=== PATIENT | female | born 1960 | race American Indian/Alaskan Native ===

== ENCOUNTER 2016-05-03 08:54 | Outpatient (CLI) | payer BC ==
--- NOTE | 2016-05-03 10:18 | Mammography Report ---
BILATERAL MAMMOGRAM: Compared to 05/01/15. CAD study utilized. FINDINGS: Scattered glandular parenchyma. No mass or microcalcification. Benign axillary nodes. IMPRESSION: Benign findings. Annual follow-up recommended. BI-RADS CATEGORY: 2 = Benign ACR BI-RADS MAMMOGRAPHIC CODES: 0 = Needs additional imaging evaluation; 1 = Negative; 2 = Benign; 3 = Probably benign; 4 = Suspicious; 5 = Malignant; 6 = Known biopsy-proven malignancy COMMENT: 1. Dense breast tissue, i.e., adenosis, fibrocystic changes, etc., may obscure an underlying neoplasm. 2. Approximately 10% of cancers are not detected with mammography. 3. A negative mammography report should not delay biopsy if a clinically suspicious mass is present. COMMENT: Patient follow-up letters are generated in [employer].
== END 2016-05-03 08:55 | disposition home or self-care (01) ==
LOC: MAMMO 08:54
PROVIDERS: ATTEND Internal Medicine
DX: Z12.31 Encounter for screening mammogram for malignant neoplasm of breast (principal)
CPT/HCPCS: 77067; G0202

== ENCOUNTER 2016-08-28 11:52 | Outpatient (CLI) | payer BC ==
[2016-08-28 12:04] LABS: Hematocrit 39.9 % (30.3-42.9); Mean Corpuscular HGB Conc 33 % (30-34); Mean Corpuscular Hemoglobin 30 pg (28-32); Mean Corpuscular Volume 91 fl (79-97); Platelet Count 195 K/mm3 (140-440); Red Blood Count 4.39 M/mm3 (3.65-5.03); Red Cell Distribution Width 14.1 % (13.2-15.2); White Blood Count 7.5 K/mm3 (4.5-11.0)
[2016-08-28 12:29] LABS: Alanine Aminotransferase 15 units/L (7-56); Albumin 3.9 g/dL (3.9-5); Albumin/Globulin Ratio 1.2 %; Alkaline Phosphatase 77 units/L (35-129); Anion Gap 15 mmol/L; BUN/Creatinine Ratio 23.33; Blood Urea Nitrogen 14 mg/dL (7-17); Calcium 8.9 mg/dL (8.4-10.2); Carbon Dioxide 31 mmol/L (22-30); Chloride 98.5 mmol/L (98-107); Cholesterol 134 mg/dL (50-199); Glucose 112 mg/dL (65-100); HDL Cholesterol 40 mg/dL (40-59); LDL Cholesterol,Direct 76 mg/dL (50-130); Potassium 3.6 mmol/L (3.6-5.0); Sodium 141 mmol/L (137-145); Total Protein 7.1 g/dL (6.3-8.2); Triglycerides 90 mg/dL (2-149)
== END 2016-08-28 11:53 | disposition home or self-care (01) ==
LOC: LAB 11:52
PROVIDERS: ATTEND Internal Medicine
DX: E11.65 Type 2 diabetes mellitus with hyperglycemia (principal); E78.2 Mixed hyperlipidemia; R53.83 Other fatigue
CPT/HCPCS: 36415; 80053; 80061; 83036; 84443; 85027

== ENCOUNTER 2017-01-01 13:43 | Outpatient (CLI) | payer BC ==
--- NOTE | 2017-01-01 16:25 | XRay Report ---
Chest 2 views. History: Cough and bronchitis. Findings: The heart and pulmonary vessels are normal. The lungs are clear. There is no pleural fluid. There is marked deviation of the trachea from left to right with increased soft tissue density in the superior mediastinum. The bony structures are normal. Impression: 1. No acute findings. 2. Increased soft tissue density in the superior mediastinum with deviation of the trachea. This could be do to a goiter, thymoma, lymphoma, or other mediastinal masses. CT of the chest is recommended for further evaluation.
== END 2017-01-01 13:44 | disposition home or self-care (01) ==
LOC: XRAY 13:43
PROVIDERS: ATTEND Internal Medicine
DX: J40 Bronchitis, not specified as acute or chronic (principal); J39.8 Other specified diseases of upper respiratory tract
CPT/HCPCS: 71020

== ENCOUNTER 2017-06-24 10:54 | Outpatient (CLI) | payer BC ==
[2017-06-24 11:36] LABS: Alanine Aminotransferase 16 units/L (7-56); Albumin 3.7 g/dL (3.9-5); BUN/Creatinine Ratio 25; Blood Urea Nitrogen 15 mg/dL (7-17); Calcium 8.7 mg/dL (8.4-10.2); Hemolysis Index 5
== END 2017-06-24 10:55 | disposition home or self-care (01) ==
LOC: LAB 10:54
PROVIDERS: ATTEND Internal Medicine
DX: E11.65 Type 2 diabetes mellitus with hyperglycemia (principal); R53.83 Other fatigue
CPT/HCPCS: 36415; 80053; 83036; 84443

== ENCOUNTER 2017-12-30 04:06 | Inpatient (IN) | payer BC ==
[2017-12-30 05:09] LABS: Bilirubin,Urine NEG (Negative); Blood,Urine NEG (Negative); Color,Urine Straw (Yellow); Protein,Urine <15 mg/dL mg/dL (Negative); Urobilinogen,Urine < 2.0 mg/dL (<2.0)
[2017-12-30 05:16] LABS: Basophils # (Auto) 0.1 K/mm3 (0.0-0.1); Basophils % (Auto) 1.1 % (0.0-1.8); Eosinophils # (Auto) 0.1 K/mm3 (0.0-0.4); Eosinophils % (Auto) 2.1 % (0.0-4.3); Hematocrit 41.6 % (30.3-42.9); Hemoglobin 14.1 gm/dl (10.1-14.3); Lymphocytes # (Auto) 1.8 K/mm3 (1.2-5.4); Lymphocytes % (Auto) 34.6 % (13.4-35.0); Mean Corpuscular HGB Conc 34 % (30-34); Mean Corpuscular Hemoglobin 30 pg (28-32); Mean Corpuscular Volume 90 fl (79-97); Monocytes # (Auto) 0.4 K/mm3 (0.0-0.8); Platelet Count 216 K/mm3 (140-440); Red Blood Count 4.64 M/mm3 (3.65-5.03); Red Cell Distribution Width 13.6 % (13.2-15.2)
[2017-12-30 05:33] LABS: BUN/Creatinine Ratio 24; Blood Urea Nitrogen 17 mg/dL (7-17); Calcium 9.6 mg/dL (8.4-10.2); Hemolysis Index 20
[2017-12-30] MEDS ORDERED: HumuLIN R IV ONE ×2 (07:51→08:37)
[2017-12-30] MEDS ORDERED: NACL 0.9% 1000 ML 1,000 ML IV ONE ×2 (07:51→09:33)
--- NOTE | 2017-12-30 07:56 | Emergency Department Report ---
ED General Adult HPI - General Chief complaint: Hyperglycemia Stated complaint: WEAKNESS Time Seen by Provider: 12/30/17 07:46 Source: patient Mode of arrival: Ambulatory Limitations: No Limitations - History of Present Illness Initial comments: Patient is 57-year-old female with history of hypertension and diabetes. Patient is taking metformin. Patient is followed with Dr. Vieira. Patient stated that she's been having frequency of urination and feeling thirsty all the time. Patient denied any chest pain, shortness of breath, nausea, vomiting or abdominal pain. Patient also denied any fever or cough. - Related Data Allergies Allergy/AdvReac Type Severity Reaction Status Date / Time No Known Allergies Allergy Unverified 04/29/14 07:46 ED Review of Systems ROS: Stated complaint: WEAKNESS Other details as noted in HPI Comment: All other systems reviewed and negative Constitutional: denies: chills, fever Respiratory: denies: cough, orthopnea, shortness of breath, SOB with exertion, SOB at rest, wheezing Cardiovascular: denies: chest pain, palpitations, dyspnea on exertion Gastrointestinal: denies: abdominal pain, nausea, vomiting, diarrhea, constipation, hematemesis, melena, hematochezia Genitourinary: frequency. denies: urgency, dysuria, hematuria, discharge, abnormal menses, dyspareunia Musculoskeletal: denies: back pain Neurological: denies: headache, weakness, numbness, paresthesias, confusion, abnormal gait, vertigo ED Past Medical Hx - Past Medical History Previous Medical History?: No - Surgical History Additional Surgical History: Thyroidectomy, - Social History Smoking Status: Never Smoker Substance Use Type: None ED Physical Exam - General Limitations: No Limitations General appearance: alert, in no apparent distress - Head Head exam: Present: atraumatic, normocephalic, normal inspection - Eye Eye exam: Present: normal appearance, PERRL - ENT ENT exam: Present: normal exam, normal orophraynx, mucous membranes moist - Neck Neck exam: Present: normal inspection, full ROM. Absent: tenderness, meningismus, lymphadenopathy, thyromegaly - Respiratory Respiratory exam: Present: normal lung sounds bilaterally. Absent: respiratory distress, wheezes, rales, rhonchi, stridor, chest wall tenderness, accessory muscle use, decreased breath sounds, prolonged expiratory - Cardiovascular Cardiovascular Exam: Present: regular rate, normal rhythm, normal heart sounds - GI/Abdominal GI/Abdominal exam: Present: soft, normal bowel sounds. Absent: distended, tenderness, guarding, rebound, rigid, organomegaly, mass, bruit, pulsatile mass , hernia - Extremities Exam Extremities exam: Present: normal inspection, full ROM, normal capillary refill - Back Exam Back exam: Present: normal inspection, full ROM. Absent: tenderness, CVA tenderness (R), CVA tenderness (L), muscle spasm, paraspinal tenderness, vertebral tenderness, rash noted - Neurological Exam Neurological exam: Present: alert, oriented X3, CN II-XII intact, normal gait, reflexes normal - Skin Skin exam: Present: warm, intact, normal color ED Course Vital Signs 12/30/17 12/30/17 12/30/17 04:12 04:35 04:52 Temperature 98.6 F 98.6 F Pulse Rate 90 90 Respiratory 18 16 16 Rate Blood Pressure 135/89 135/89 O2 Sat by Pulse 97 96 Oximetry 12/30/17 12/30/17 12/30/17 05:10 05:15 05:18 Temperature Pulse Rate 89 89 87 Respiratory 12 16 Rate Blood Pressure O2 Sat by Pulse 97 96 Oximetry 12/30/17 12/30/17 12/30/17 05:30 05:46 06:00 Temperature Pulse Rate 83 85 81 Respiratory 17 13 14 Rate Blood Pressure 136/85 136/85 142/86 O2 Sat by Pulse 97 95 98 Oximetry 12/30/17 12/30/17 12/30/17 06:22 06:30 06:46 Temperature Pulse Rate 88 85 83 Respiratory 20 16 20 Rate Blood Pressure 142/86 126/85 130/86 O2 Sat by Pulse 98 97 98 Oximetry 12/30/17 12/30/17 12/30/17 07:00 07:16 07:30 Temperature Pulse Rate 88 83 80 Respiratory 20 15 16 Rate Blood Pressure 126/85 121/83 142/89 O2 Sat by Pulse 99 96 95 Oximetry 12/30/17 12/30/17 12/30/17 08:00 08:33 09:00 Temperature Pulse Rate 85 85 82 Respiratory 15 28 H Rate Blood Pressure 135/87 142/89 126/84 O2 Sat by Pulse 97 96 Oximetry 12/30/17 10:00 Temperature Pulse Rate 81 Respiratory 16 Rate Blood Pressure 140/80 O2 Sat by Pulse 96 Oximetry ED Medical Decision Making - Lab Data Result diagrams: 12/30/17 04:55 12/30/17 04:55 - Medical Decision Making Patient is 57-year-old female with history of hypertension and diabetes. Patient is taking metformin. Patient is followed with Dr. Vieira. Patient stated that she's been having frequency of urination and feeling thirsty all the time. Patient denied any chest pain, shortness of breath, nausea, vomiting or abdominal pain. Patient also denied any fever or cough. I discussed the patient is Dr. Vieira, he agreed to admit the patient to his service. Critical Care Time: Yes Critical care time in (mins) excluding proc time.: 30 Critical care attestation.: If time is entered above; I have spent that time in minutes in the direct care of this critically ill patient, excluding procedure time. ED Disposition Clinical Impression: Hyperglycemia due to type 2 diabetes mellitus Disposition: OP ADMIT IP TO THIS HOSP Is pt being admited?: Yes Condition: Stable
--- NOTE | 2017-12-30 10:16 | History and Physical Report ---
History of Present Illness Date of examination: 12/30/17 Date of admission: 12/30/17 Chief complaint: CC Feeling weak High BG levels History of present illness: History of Present Illness: 57-year-old female with history of hypertension and diabetes on Metformin and Glimepride 1 mg po qd comes in for High BG levels Frequent urination and feeling excessively thirsty .Patient is [employer] employee and comes to my clinic for management of her diabetes.Last A1C was 8 in September 2017. Patient denied any chest pain, shortness of breath, nausea, vomiting or abdominal pain. Patient also denied any fever or cough.In ED her Glucose levels were above 600 and A1c was 17 --Hence the admission. No altered sensorium.No fever or chills.No dysuria. Past Medical History Previous Medical History?: No Surgical History Additional Surgical History: Thyroidectomy, Social History Smoking Status: Never Smoker Substance Use Type: None Family History htn Review of Systems Stated complaint: WEAKNESS Other details as noted in HPI Comment: All other systems reviewed and negative Constitutional: denies: chills, fever Respiratory: denies: cough, orthopnea, shortness of breath, SOB with exertion, SOB at rest, wheezing Cardiovascular: denies: chest pain, palpitations, dyspnea on exertion Gastrointestinal: denies: abdominal pain, nausea, vomiting, diarrhea, constipation, hematemesis, melena, hematochezia Genitourinary: frequency. denies: urgency, dysuria, hematuria, discharge, abnormal menses, dyspareunia Musculoskeletal: denies: back pain Neurological: denies: headache, weakness, numbness, paresthesias, confusion, abnormal gait, vertigo Medications and Allergies Allergies Allergy/AdvReac Type Severity Reaction Status Date / Time No Known Allergies Allergy Verified 12/30/17 12:39 Home Medications Medication Instructions Recorded Confirmed Last Taken Type Carvedilol [Coreg] 6.25 mg PO BID MDD 6.25 mg 12/30/17 12/30/17 12/28/17 History 6.25 mg Simvastatin 40 mg PO DAILY MDD 40 mg 12/30/17 12/30/17 12/28/17 History 40 mg metFORMIN [Glucophage] 500 mg PO BID MDD 500 mg 12/30/17 12/30/17 12/28/17 History 500mg Active Meds: Active Medications Sodium Chloride (Nacl 0.9% 1000 Ml) 1,000 mls @ 999 mls/hr IV BOLUS ONE Stop: 12/30/17 10:33 Last Admin: 12/30/17 09:33 Dose: 999 mls/hr Exam - Constitutional Vitals: Temp Pulse Resp BP Pulse Ox 98.6 F 85 15 142/89 97 12/30/17 04:35 12/30/17 08:33 12/30/17 08:00 12/30/17 08:33 12/30/17 08:00 General appearance: Present: no acute distress, well-nourished - EENT Eyes: Present: PERRL ENT: hearing intact, clear oral mucosa - Neck Neck: Present: supple, normal ROM - Respiratory Respiratory effort: normal Respiratory: bilateral: CTA - Cardiovascular Heart rate: 78 Heart Sounds: Present: S1 & S2. Absent: rub, click - Extremities Extremities: no ischemia, pulses intact, pulses symmetrical, No edema Peripheral Pulses: within normal limits - Abdominal General gastrointestinal: Present: soft, non-tender, non-distended, normal bowel sounds Female genitourinary: Present: normal - Rectal Rectal Exam: deferred - Integumentary Integumentary: Present: clear, warm, dry - Musculoskeletal Musculoskeletal: gait normal, strength equal bilaterally - Psychiatric Psychiatric: appropriate mood/affect, intact judgment & insight - Neurologic Neurologic: CNII-XII intact, moves all extremities - Allied Health Allied health notes reviewed: nursing, case management Results - Labs CBC & Chem 7: 12/31/17 04:46 12/31/17 04:46 Labs: Laboratory Last Values WBC 5.1 K/mm3 (4.5-11.0) 12/30/17 04:55 RBC 4.64 M/mm3 (3.65-5.03) 12/30/17 04:55 Hgb 14.1 gm/dl (10.1-14.3) 12/30/17 04:55 Hct 41.6 % (30.3-42.9) 12/30/17 04:55 MCV 90 fl (79-97) 12/30/17 04:55 MCH 30 pg (28-32) 12/30/17 04:55 MCHC 34 % (30-34) 12/30/17 04:55 RDW 13.6 % (13.2-15.2) 12/30/17 04:55 Plt Count 216 K/mm3 (140-440) 12/30/17 04:55 Lymph % (Auto) 34.6 % (13.4-35.0) 12/30/17 04:55 [place] % (Auto) 8.0 % (0.0-7.3) H 12/30/17 04:55 Eos % (Auto) 2.1 % (0.0-4.3) 12/30/17 04:55 Baso % (Auto) 1.1 % (0.0-1.8) 12/30/17 04:55 Lymph # 1.8 K/mm3 (1.2-5.4) 12/30/17 04:55 [place] # 0.4 K/mm3 (0.0-0.8) 12/30/17 04:55 Eos # 0.1 K/mm3 (0.0-0.4) 12/30/17 04:55 Baso # 0.1 K/mm3 (0.0-0.1) 12/30/17 04:55 Seg Neutrophils % 54.2 % (40.0-70.0) 12/30/17 04:55 Seg Neutrophils # 2.8 K/mm3 (1.8-7.7) 12/30/17 04:55 VBG pH 7.377 (7.320-7.420) 12/30/17 04:55 Sodium 127 mmol/L (137-145) L 12/30/17 04:55 Potassium 4.3 mmol/L (3.6-5.0) 12/30/17 04:55 Chloride 87.2 mmol/L (98-107) L 12/30/17 04:55 Carbon Dioxide 27 mmol/L (22-30) 12/30/17 04:55 Anion Gap 17 mmol/L 12/30/17 04:55 BUN 17 mg/dL (7-17) 12/30/17 04:55 Creatinine 0.7 mg/dL (0.7-1.2) 12/30/17 04:55 Estimated GFR > 60 ml/min 12/30/17 04:55 BUN/Creatinine Ratio 24 % 12/30/17 04:55 Glucose 647 mg/dL (65-100) H* 12/30/17 04:55 POC Glucose 313 (70-105) H 12/30/17 09:25 Hemoglobin A1c 17.1 % (4-6) H 12/30/17 08:01 Calcium 9.6 mg/dL (8.4-10.2) 12/30/17 04:55 Urine Color Straw (Yellow) 12/30/17 04:50 Urine Turbidity Clear (Clear) 12/30/17 04:50 Urine pH 5.0 (5.0-7.0) 12/30/17 04:50 Ur Specific [place] 1.029 (1.003-1.030) 12/30/17 04:50 Urine Protein <15 mg/dl mg/dL (Negative) 12/30/17 04:50 Urine Glucose (UA) >=500 mg/dL (Negative) 12/30/17 04:50 Urine Ketones Neg mg/dL (Negative) 12/30/17 04:50 Urine Blood Neg (Negative) 12/30/17 04:50 Urine Nitrite Neg (Negative) 12/30/17 04:50 Urine Bilirubin Neg (Negative) 12/30/17 04:50 Urine Urobilinogen < 2.0 mg/dL (<2.0) 12/30/17 04:50 Ur Leukocyte Esterase Sm (Negative) 12/30/17 04:50 Urine WBC (Auto) 4.0 /HPF (0.0-6.0) 12/30/17 04:50 Urine RBC (Auto) 2.0 /HPF (0.0-6.0) 12/30/17 04:50 U Epithel Cells (Auto) 1.0 /HPF (0-13.0) 12/30/17 04:50 Short CBC 12/31/17 Range/Units 04:46 WBC 4.7 (4.5-11.0) K/mm3 Hgb 12.5 (10.1-14.3) gm/dl Hct 37.4 (30.3-42.9) % Plt Count 169 (140-440) K/mm3 BMP 12/31/17 04:46 Sodium 136 L D Potassium 3.5 L Chloride 99.5 Carbon Dioxide 25 BUN 12 Creatinine 0.5 L Glucose 198 H Calcium 8.2 L Liver Function 12/31/17 Range/Units 04:46 Total Bilirubin 0.70 (0.1-1.2) mg/dL AST 22 (5-40) units/L ALT 23 (7-56) units/L Alkaline Phosphatase 79 (35-129) units/L Albumin 3.2 L (3.9-5) g/dL - Imaging and Cardiology EKG: report reviewed Assessment and Plan Advance Directives: Yes (FC) VTE prophylaxis?: Chemical Plan of care discussed with patient/family: Yes - Patient Problems (1) Hyperosmolar non-ketotic state in patient with type 2 diabetes mellitus Current Visit: Yes Status: Acute Plan to address problem: Initial BG is 630 No Ketones Clinical picture in favor of Hyuperosmolar Non ketotic state Will initiate on Accucheks q4 and moderate dose protocol IV Fluids Humalog 70/30 15 units BID Patient reluctant for admission (2) HTN (hypertension) Current Visit: Yes Status: Chronic Qualifiers: Hypertension type: essential hypertension Qualified Code(s): I10 - Essential (primary) hypertension Plan to address problem: COnt Antihypertensives (3) Morbid obesity due to excess calories Current Visit: Yes Status: Chronic Plan to address problem: Counselled (4) Hyponatremia Current Visit: Yes Status: Acute Plan to address problem: Should correct with Correction of BG (5) DVT prophylaxis Current Visit: Yes Status: Acute Plan to address problem: On Lovenox GI prophylaxis initiated
[2017-12-30] MEDS ORDERED: ZOFRAN IV PRN (10:19)
[2017-12-30] MEDS ORDERED: MORPHINE IV PRN (10:19)
[2017-12-30] MEDS ORDERED: TYLENOL PO PRN (10:19)
[2017-12-30] MEDS ORDERED: SODIUM CHLORIDE FLUSH SYRINGE 10 ML IV PRN (10:19)
[2017-12-30] MEDS ORDERED: HumaLOG SUB-Q ONE (10:22)
[2017-12-30] MEDS: LOVENOX SUB-Q SCH (10:38)
[2017-12-30] MEDS: NACL 0.9% 1000 ML 1,000 ML IV SCH (12:55)
[2017-12-30] MEDS ORDERED: HumaLOG SUB-Q PRN (17:01)
[2017-12-30] MEDS: PERCOCET 5/325 PO PRN (20:53)
[2017-12-30] MEDS: SODIUM CHLORIDE FLUSH SYRINGE 10 ML IV SCH (22:12)
[2017-12-30] MEDS: HumaLOG SUB-Q SCH (22:13)
[2017-12-31] MEDS: NACL 0.9% 1000 ML 1,000 ML IV SCH ×2 (00:12→18:35)
[2017-12-31] MEDS: HumaLOG SUB-Q SCH ×6 (02:30→21:53)
[2017-12-31] MEDS: PERCOCET 5/325 PO PRN (02:34)
[2017-12-31 05:26] LABS: Basophils % (Auto) 0.6 % (0.0-1.8); Eosinophils # (Auto) 0.1 K/mm3 (0.0-0.4); Eosinophils % (Auto) 2.1 % (0.0-4.3); Hematocrit 37.4 % (30.3-42.9); Hemoglobin 12.5 gm/dl (10.1-14.3); Lymphocytes # (Auto) 1.7 K/mm3 (1.2-5.4); Lymphocytes % (Auto) 36.4 % (13.4-35.0); Mean Corpuscular HGB Conc 34 % (30-34); Mean Corpuscular Hemoglobin 30 pg (28-32); Mean Corpuscular Volume 90 fl (79-97); Monocytes # (Auto) 0.4 K/mm3 (0.0-0.8); Monocytes % (Auto) 9.2 % (0.0-7.3); Platelet Count 169 K/mm3 (140-440); Red Blood Count 4.15 M/mm3 (3.65-5.03); Red Cell Distribution Width 13.7 % (13.2-15.2)
[2017-12-31 05:42] LABS: Alanine Aminotransferase 23 units/L (7-56); Albumin 3.2 g/dL (3.9-5); BUN/Creatinine Ratio 24; Blood Urea Nitrogen 12 mg/dL (7-17); Calcium 8.2 mg/dL (8.4-10.2); Hemolysis Index 4
[2017-12-31] MEDS ORDERED: K-DUR PO ONE (09:00)
[2017-12-31] MEDS: LOVENOX SUB-Q SCH (09:19)
[2017-12-31] MEDS: SODIUM CHLORIDE FLUSH SYRINGE 10 ML IV SCH ×2 (09:20→21:57)
[2017-12-31] MEDS ORDERED: NON-FORMULARY (Simvastatin 40 MG) PO SCH (10:00)
[2017-12-31] MEDS: COREG PO SCH ×2 (10:48→21:54)
[2017-12-31] MEDS ORDERED: HumaLOG SUB-Q ONE (12:10)
--- NOTE | 2017-12-31 13:13 | Discharge Summary ---
Providers - Providers Date of Admission: 12/30/17 10:20 Attending physician: HECTOR FELIX 12/30/17 10:23 Consult to Dietitian/Nutrition [CONS] Routine Physician Instructions: uncontrolled diabetes Reason For Exam: uncontrolled diabetes Reason for Consult: Diet education Primary care physician: MIGUEL FARRELL MD Hospitalization Condition: Stable Exam - Constitutional Vitals: Temp Pulse Resp BP Pulse Ox 97.7 F 88 18 104/51 96 12/31/17 06:21 12/31/17 10:48 12/31/17 06:21 12/31/17 10:48 12/31/17 06:21 Plan Follow up with: PRIMARY MD BUD [Primary Care Provider] - 3-5 Days
--- NOTE | 2017-12-31 14:11 | Progress Note ---
Assessment and Plan Assessment and plan: Hyperosmolar hyperglycemic syndrome. Blood glucose still high. Will cancel intended discharge. Increase Novolin 70/30 to 26 units bid. Hypertension. Monitor BP Hyponatremia. Hypokalemia. Potassium orally, and recheck in am Morbid obesity Full code status History Interval history: Elevated blood glucose Hospitalist Physical - Physical exam Narrative exam: GEN:Not in acute distress, lying in bed, morbidly obese HEENT: Normocephalic, atraumatic, Neck: supple, No JVD Lungs: Clear to auscultation bilaterally, no crackles Heart:S1 and S2 reg, no murmurs, rubs or gallop Abd:soft, non tender, non distended, Normal bowel sounds Ext: No edema, clubbing or cyanosis Neuro: Awake, alert, oriented x 3, no focal signs - Constitutional Vitals: Temp Pulse Resp BP Pulse Ox 98.4 F 77 16 125/76 97 12/31/17 12:07 12/31/17 12:07 12/31/17 12:07 12/31/17 12:07 12/31/17 12:07 General appearance: Present: no acute distress, obese Results - Labs CBC & Chem 7: 12/31/17 04:46 12/31/17 04:46 Labs: Laboratory Last Values WBC 4.7 K/mm3 (4.5-11.0) 12/31/17 04:46 RBC 4.15 M/mm3 (3.65-5.03) 12/31/17 04:46 Hgb 12.5 gm/dl (10.1-14.3) 12/31/17 04:46 Hct 37.4 % (30.3-42.9) 12/31/17 04:46 MCV 90 fl (79-97) 12/31/17 04:46 MCH 30 pg (28-32) 12/31/17 04:46 MCHC 34 % (30-34) 12/31/17 04:46 RDW 13.7 % (13.2-15.2) 12/31/17 04:46 Plt Count 169 K/mm3 (140-440) 12/31/17 04:46 Lymph % (Auto) 36.4 % (13.4-35.0) H 12/31/17 04:46 [place] % (Auto) 9.2 % (0.0-7.3) H 12/31/17 04:46 Eos % (Auto) 2.1 % (0.0-4.3) 12/31/17 04:46 Baso % (Auto) 0.6 % (0.0-1.8) 12/31/17 04:46 Lymph # 1.7 K/mm3 (1.2-5.4) 12/31/17 04:46 [place] # 0.4 K/mm3 (0.0-0.8) 12/31/17 04:46 Eos # 0.1 K/mm3 (0.0-0.4) 12/31/17 04:46 Baso # 0.0 K/mm3 (0.0-0.1) 12/31/17 04:46 Seg Neutrophils % 51.7 % (40.0-70.0) 12/31/17 04:46 Seg Neutrophils # 2.4 K/mm3 (1.8-7.7) 12/31/17 04:46 VBG pH 7.377 (7.320-7.420) 12/30/17 04:55 Sodium 136 mmol/L (137-145) L D 12/31/17 04:46 Potassium 3.5 mmol/L (3.6-5.0) L 12/31/17 04:46 Chloride 99.5 mmol/L (98-107) 12/31/17 04:46 Carbon Dioxide 25 mmol/L (22-30) 12/31/17 04:46 Anion Gap 15 mmol/L 12/31/17 04:46 BUN 12 mg/dL (7-17) 12/31/17 04:46 Creatinine 0.5 mg/dL (0.7-1.2) L 12/31/17 04:46 Estimated GFR > 60 ml/min 12/31/17 04:46 BUN/Creatinine Ratio 24 % 12/31/17 04:46 Glucose 198 mg/dL (65-100) H 12/31/17 04:46 POC Glucose 429 (70-105) H 12/31/17 14:07 Hemoglobin A1c 17.1 % (4-6) H 12/30/17 08:01 Calcium 8.2 mg/dL (8.4-10.2) L 12/31/17 04:46 Total Bilirubin 0.70 mg/dL (0.1-1.2) 12/31/17 04:46 AST 22 units/L (5-40) 12/31/17 04:46 ALT 23 units/L (7-56) 12/31/17 04:46 Alkaline Phosphatase 79 units/L (35-129) 12/31/17 04:46 Total Protein 5.6 g/dL (6.3-8.2) L 12/31/17 04:46 Albumin 3.2 g/dL (3.9-5) L 12/31/17 04:46 Albumin/Globulin Ratio 1.3 % 12/31/17 04:46 Urine Color Straw (Yellow) 12/30/17 04:50 Urine Turbidity Clear (Clear) 12/30/17 04:50 Urine pH 5.0 (5.0-7.0) 12/30/17 04:50 Ur Specific [place] 1.029 (1.003-1.030) 12/30/17 04:50 Urine Protein <15 mg/dl mg/dL (Negative) 12/30/17 04:50 Urine Glucose (UA) >=500 mg/dL (Negative) 12/30/17 04:50 Urine Ketones Neg mg/dL (Negative) 12/30/17 04:50 Urine Blood Neg (Negative) 12/30/17 04:50 Urine Nitrite Neg (Negative) 12/30/17 04:50 Urine Bilirubin Neg (Negative) 12/30/17 04:50 Urine Urobilinogen < 2.0 mg/dL (<2.0) 12/30/17 04:50 Ur Leukocyte Esterase Sm (Negative) 12/30/17 04:50 Urine WBC (Auto) 4.0 /HPF (0.0-6.0) 12/30/17 04:50 Urine RBC (Auto) 2.0 /HPF (0.0-6.0) 12/30/17 04:50 U Epithel Cells (Auto) 1.0 /HPF (0-13.0) 12/30/17 04:50
[2017-12-31] MEDS ORDERED: PRAVACHOL PO SCH (22:00)
[2018-01-01] MEDS: NACL 0.9% 1000 ML 1,000 ML IV SCH (05:27)
[2018-01-01] MEDS: HumaLOG SUB-Q SCH (08:50)
--- NOTE | 2018-01-01 09:10 | Discharge Summary ---
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 Vieira, PCP in 1 week Follow up with: PRIMARY CARE, [Primary Care Provider] - 3-5 Days Prescriptions: Insulin NPH/Regular [NovoLIN 70/30] 26 unit SUB-Q BIDDIAB #1 vial
[2018-01-01] MEDS: COREG PO SCH (09:47)
[2018-01-01] MEDS: LOVENOX SUB-Q SCH (09:48)
[2018-01-01] MEDS: SODIUM CHLORIDE FLUSH SYRINGE 10 ML IV SCH (09:53)
[2018-01-01 11:44] VITALS: BP 121/73
[2018-01-01] MEDS ORDERED: DIFLUCAN PO ONE (12:00)
== END 2018-01-01 12:30 | disposition home or self-care (01) | DRG 638 ==
LOC: ED 04:06 → 3A 10:20
PROVIDERS: ADMIT Internal Medicine; ATTEND Internal Medicine
DX: E11.00 Type 2 diabetes mellitus with hyperosmolarity without nonketotic hyperglycemic-hyperosmolar coma (NKHHC) (principal); E87.1 Hypo-osmolality and hyponatremia; Z68.41 Body mass index [BMI] 40.0-44.9, adult; I10 Essential (primary) hypertension; E87.6 Hypokalemia; E66.01 Morbid (severe) obesity due to excess calories; E89.0 Postprocedural hypothyroidism; Z79.899 Other long term (current) drug therapy; Z71.3 Dietary counseling and surveillance
CPT/HCPCS: 36415; 80048; 80053; 81001; 82805; 82962; 83036; 85025; 87116; 96361; 96372; 96374; A9270-GY; J1650; J1815; J7030

== ENCOUNTER 2018-08-03 05:37 | Outpatient (CLI) | payer BC | END 2018-08-03 05:38 | disposition home or self-care (01) | LOC: LAB 05:37 | PROVIDERS: ATTEND Internal Medicine | DX: E11.65 Type 2 diabetes mellitus with hyperglycemia (principal); I10 Essential (primary) hypertension; E66.01 Morbid (severe) obesity due to excess calories | CPT/HCPCS: 36415; 83036 ==

== ENCOUNTER 2019-02-02 05:41 | Outpatient (CLI) | payer BC | END 2019-02-02 05:42 | disposition home or self-care (01) | LOC: LAB 05:41 | PROVIDERS: ATTEND Internal Medicine | DX: E11.65 Type 2 diabetes mellitus with hyperglycemia (principal); I10 Essential (primary) hypertension | CPT/HCPCS: 36415; 83036 ==

== ENCOUNTER 2019-06-28 13:05 | Outpatient (CLI) | payer BC ==
[2019-06-28 13:58] LABS: Alanine Aminotransferase 14 units/L (7-56); Albumin 3.9 g/dL (3.9-5); BUN/Creatinine Ratio 23; Blood Urea Nitrogen 14 mg/dL (7-17); Calcium 9.3 mg/dL (8.4-10.2); Hemolysis Index 4
== END 2019-06-28 13:06 | disposition home or self-care (01) ==
LOC: LAB 13:05
PROVIDERS: ATTEND Internal Medicine
DX: R53.83 Other fatigue (principal); E11.65 Type 2 diabetes mellitus with hyperglycemia
CPT/HCPCS: 36415; 80053; 83036

== ENCOUNTER 2019-09-11 18:43 | Emergency (ER) | payer BC ==
[2019-09-11 18:53] VITALS: BP 145/104
--- NOTE | 2019-09-11 19:59 | Emergency Department Report ---
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 Patient states that the pain is minimum she reports that she is able to do everything. Patient thinks she has been moving and working too much. - Exam Vital Signs: Vital Signs 09/11/19 18:50 Temperature 98 F Pulse Rate 90 Respiratory 20 Rate Blood Pressure 145/104 O2 Sat by Pulse 96 Oximetry Physical Exam: Patient is alert and oriented no acute distress nontoxic in appearance Neck full range of motion no tenderness Left arm full range of motion no tenderness to the shoulder no tenderness to the elbow or wrist or hand there is no swelling appreciated. Left knee full range of motion minimal tenderness no swelling no erythematous. Patient is ambulatory without difficulties. MSE screening note: Focused history and physical exam performed. 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 Patient states that the pain is minimum she reports that she is able to do everything. Patient thinks she has been moving and working too much. Recommend patient to take [id number] Tylenol or ibuprofen for pain management. I recommend patient to rest today increase her fluid intake. Patient verbalized understanding ED Disposition for MSE Disposition: Z-07 MED SCREENING EXAM-LEFT Is pt being admited?: No Does the pt Need Aspirin: No Condition: Stable Additional Instructions: Recommend taking Tylenol or ibuprofen for pain management increase your fluid intake. Rest. Referrals: PRIMARY CARE, [Primary Care Provider] - 3-5 Days Forms: Work/School Release Form(ED)
== END 2019-09-11 20:00 | disposition left against medical advice (07) ==
LOC: ED 18:43
DX: M25.561 Pain in right knee (principal)
CPT/HCPCS: 99282

== ENCOUNTER 2020-08-02 11:49 | Outpatient (CLI) | payer BC ==
[2020-08-02 12:38] LABS: Alanine Aminotransferase 12 units/L (7-56); Albumin 3.7 g/dL (3.9-5); Blood Urea Nitrogen 12 mg/dL (7-17); Calcium 8.6 mg/dL (8.4-10.2); Hemolysis Index 5
[2020-08-02 12:55] LABS: BUN/Creatinine Ratio 24
== END 2020-08-02 11:50 | disposition home or self-care (01) ==
LOC: LAB 11:49
PROVIDERS: ATTEND Internal Medicine
DX: E11.65 Type 2 diabetes mellitus with hyperglycemia (principal); R53.83 Other fatigue; R73.09 Other abnormal glucose
CPT/HCPCS: 36415; 80053; 83036

== ENCOUNTER 2020-11-08 10:12 | Outpatient (CLI) | payer BC ==
[2020-11-08 11:38] LABS: Alanine Aminotransferase 12 units/L (7-56); Albumin 3.9 g/dL (3.9-5); Blood Urea Nitrogen 12 mg/dL (7-17); Calcium 9.3 mg/dL (8.4-10.2); Hemolysis Index 3
[2020-11-08 11:39] LABS: BUN/Creatinine Ratio 24
== END 2020-11-08 10:13 | disposition home or self-care (01) ==
LOC: LAB 10:12
PROVIDERS: ATTEND Internal Medicine
DX: E11.65 Type 2 diabetes mellitus with hyperglycemia (principal); R73.09 Other abnormal glucose; R53.83 Other fatigue
CPT/HCPCS: 36415; 80053; 83036

== ENCOUNTER 2021-02-01 07:25 | Outpatient (CLI) | payer BC ==
[2021-02-01 08:30] LABS: Hematocrit 43.1 % (30.3-42.9); Hemoglobin 14.2 gm/dl (10.1-14.3); Mean Corpuscular HGB Conc 33 % (30-34); Mean Corpuscular Volume 89 fl (79-97); Platelet Count 242 K/mm3 (140-440); Red Blood Count 4.85 M/mm3 (3.65-5.03); Red Cell Distribution Width 13.3 % (13.2-15.2)
[2021-02-01 08:53] LABS: Alanine Aminotransferase 17 units/L (7-56); Albumin 3.9 g/dL (3.9-5); Blood Urea Nitrogen 11 mg/dL (7-17); Calcium 9.3 mg/dL (8.4-10.2); Chol/HDL Ratio 3.69 %; HDL Cholesterol 42 mg/dL (40-59); Hemolysis Index 8; LDL Cholesterol,Direct 103 mg/dL (50-130)
[2021-02-01 08:56] LABS: BUN/Creatinine Ratio 22
--- NOTE | 2021-02-01 18:00 | Mammography Report ---
DIGITAL SCREENING MAMMOGRAM WITH CAD, 02/01/2021 CLINICAL INFORMATION / INDICATION: Routine screening TECHNIQUE: Digital bilateral 2D mammography was obtained in the craniocaudal and mediolateral obliqu e projections. This examination was interpreted with the benefit of Computer-Aided Detection analysis . COMPARISON: 08/18/2019 FINDINGS: Breast Density: The breasts are heterogeneously dense, which may obscure small masses. No dominant mass, suspicious calcifications, or architectural distortion in either breast. IMPRESSION: No mammographic evidence of malignancy. Follow up recommendation: Routine yearly BI-RADS Category 1: Negative. A "normal" or negative report should not discourage follow up or biopsy of a clinically significant f inding. A written summary of these findings will be mailed to the patient. The patient will be entered into a mammography reporting system which will generate a reminder letter for the patient's next appointmen t at the appropriate interval. The [employer] recommends yearly mammograms starting at age 40 and continuing as l yumiko as a woman is in good health. Breast MRI is recommended for women with an approximate 20-25% or greater lifetime risk of breast cancer, including women with a strong family history of breast or ova kyle cancer or who have been treated for Hodgkin's disease. Signer Name: Jun Holden MD Signed: 02/01/2021 5:55 PM Workstation Name: [email or web address]
== END 2021-02-01 07:26 | disposition home or self-care (01) ==
LOC: LAB 07:25
PROVIDERS: ATTEND Internal Medicine
DX: Z12.31 Encounter for screening mammogram for malignant neoplasm of breast (principal)
CPT/HCPCS: 36415; 77067; 80053; 80061; 82306; 83036; 84443; 85027

== ENCOUNTER 2021-03-16 09:29 | Day surgery (SDC) | payer BC ==
[~2021-03-16 09:29] MED LIST: SODIUM CHLORIDE 0.9% 1000 ML 1,000 ML IV SCH
--- NOTE | 2021-03-16 11:09 | Anesthesia Day of Surgery ---
Anesthesia Day of Surgery - Day of Surgery Patient Examined: Yes Patient H&P Reviewed: Yes Patient is NPO: Yes
--- NOTE | 2021-03-16 11:09 | Anesthesia Consultation ---
Anesthesia Consult and Med Hx Date of service: 03/16/21 - Airway Anesthetic Teeth Evaluation: Good ROM Head & Neck: Adequate Mental/Hyoid Distance: Adequate Mallampati Class: Class III Intubation Access Assessment: Possibly Difficult - Pre-Operative Health Status ASA Pre-Surgery Classification: ASA2 Proposed Anesthetic Plan: MAC - Pulmonary Hx Smoking: No Hx Respiratory Symptoms: No - Cardiovascular System Hx Hypertension: Yes Hx Heart Attack/AMI: No - Central Nervous System CVA: No - Endocrine Hx Renal Disease: No Hx Liver Disease: No Hx Insulin Dependent Diabetes: No Hx Non-Insulin Dependent Diabetes: No Hx Thyroid Disease: No - Additional Comments Anesthesia Medical History Comments: No hx anesthetic complications.
[2021-03-16 12:04] VITALS: BP 115/72
[2021-03-16] MEDS ORDERED: propofoL 200 MG/20 ML VIAL IV ONE ×2 (13:35→13:49)
--- NOTE | 2021-03-16 14:04 | Procedure Note ---
Date of procedure: 03/16/21 Pre-op diagnosis: Colon Polyp Screening/ F/H/o Cancer ([place] Cancer-aunt) Post-op diagnosis: other (No Colon Polyps noted/ Few,Left Colon Diverticuli/ Minor,Internal and External Hemorrhoids) Procedure: Colonoscopy Anesthesia: MAC Surgeon: SAMUEL LE Estimated blood loss: none Pathology: none Condition: stable Disposition: same day (Encourage fiber intake; resume home medication and follow p in 1 o 2 weeks ([phone]).)
--- NOTE | 2021-03-16 14:39 | Post Anesthesia Evaluation ---
- Post Anesthesia Evaluation Patient Participated: Yes Airway Patent: Yes Stable Respiratory Function: Yes Nausea/Vomiting: No Temp > 96.8F: Yes Pain Manageable: Yes Adequeate Hydration: Yes Anesthesia Complications: No
--- NOTE | 2021-03-16 15:12 | Operative Report ---
DATE OF SURGERY: 03/16/2021 INDICATIONS: This is a 60-year-old obese -[place] female with a family history of cancer. The patient's aunt has had breast cancer. Colonoscopy was done as part of colon polyp screening. She has never had a colonoscopy done before. DESCRIPTION OF PROCEDURE: Procedure was done after getting informed consent with MAC anesthesia. Initial rectal examination showed presence of some minor external hemorrhoids. The instrument was passed through the rectum onto the cecum, which was identified with ileocecal valve and the appendiceal orifice. Visualization was fair to good. Cecum, ascending colon and transverse colon showed normal mucosa. There were a few minor diverticula noted in the left colon and the rectum showed some minor internal hemorrhoid, which was not significant enough for banding. ASSESSMENT: Colon polyp screening, family history of cancer. The patient's aunt had breast cancer. No colon polyps noted. A few minor diverticula, minor internal and external hemorrhoids. PLAN: To encourage to take fiber supplements and also encouraged the patient to take [id number] hemorrhoidal medication. Otherwise, resume home medication and follow up in the office in 1-2 weeks' time. Thank you for the kind referral. TID: [id number] RECEIPT: [id number] GORDY/OLAF/FREYA cc: PHYLLIS MILLER MD
== END 2021-03-16 09:30 | disposition home or self-care (01) ==
LOC: GIO 09:29 → EDSTATUS 13:45
DX: Z12.11 Encounter for screening for malignant neoplasm of colon (principal); K64.8 Other hemorrhoids; K57.30 Diverticulosis of large intestine without perforation or abscess without bleeding; K63.89 Other specified diseases of intestine; I10 Essential (primary) hypertension; F17.210 Nicotine dependence, cigarettes, uncomplicated; E11.65 Type 2 diabetes mellitus with hyperglycemia; E66.01 Morbid (severe) obesity due to excess calories; Z80.0 Family history of malignant neoplasm of digestive organs; Z79.899 Other long term (current) drug therapy; Z98.890 Other specified postprocedural states; Z85.3 Personal history of malignant neoplasm of breast; Z68.30 Body mass index [BMI] 30.0-30.9, adult
CPT/HCPCS: 45378; 82962; J2704; J7030; J7120; Q0162

== ENCOUNTER 2021-09-12 19:55 | Emergency (ER) | payer BC ==
[2021-09-12 20:41] VITALS: BP 109/68
[2021-09-12 21:55] LABS: Basophils % (Auto) 0.5 % (0.0-1.8); Eosinophils # (Auto) 0.2 K/mm3 (0.0-0.4); Eosinophils % (Auto) 1.6 % (0.0-4.3); Hematocrit 37.3 % (30.3-42.9); Hemoglobin 12.5 gm/dl (10.1-14.3); Lymphocytes # (Auto) 1.3 K/mm3 (1.2-5.4); Mean Corpuscular HGB Conc 34 % (30-34); Mean Corpuscular Volume 91 fl (79-97); Monocytes # (Auto) 0.7 K/mm3 (0.0-0.8); Monocytes % (Auto) 6.4 % (0.0-7.3); Platelet Count 231 K/mm3 (140-440); Red Blood Count 4.11 M/mm3 (3.65-5.03); Red Cell Distribution Width 13.5 % (13.2-15.2)
[2021-09-12 22:00] LABS: Alanine Aminotransferase 12 units/L (7-56); Albumin 4.1 g/dL (3.9-5); Blood Urea Nitrogen 15 mg/dL (7-17); Calcium 9.3 mg/dL (8.4-10.2); Hemolysis Index 11
[2021-09-12 22:15] LABS: BUN/Creatinine Ratio 30
[2021-09-12] MEDS ORDERED: ONDANSETRON 4 MG/2 ML INJ IV STA (23:00)
[2021-09-12] MEDS ORDERED: SODIUM CHLORIDE 0.9% 1000 ML 1,000 ML IV ONE (23:00)
[2021-09-12 23:56] LABS: Bacteria,Urine 1+ /HPF (Negative); Mucus,Urine 2+ /HPF
--- NOTE | 2021-09-13 00:10 | Ultrasound Report ---
LIMITED RUQ ABDOMINAL ULTRASOUND INDICATION / CLINICAL INFORMATION: ruq pain. COMPARISON: No relevant prior imaging study available. FINDINGS: PANCREAS: Visualized portions show no significant abnormality. ABDOMINAL AORTA: No significant abnormality. IVC: No significant abnormality.. LIVER: The liver measures 15.6 cm in length. No significant abnormality. Normal hepatopedal blood fl ow in the main portal vein. GALLBLADDER: No significant abnormality. BILE DUCTS: No significant abnormality. Common bile duct measures 2 mm. RIGHT KIDNEY: No significant abnormality visualized. FREE FLUID: None. ADDITIONAL FINDINGS: None. IMPRESSION: 1. No sonographic abnormality of the right upper quadrant. Signer Name: Gerard Plunkett MD Signed: 09/13/2021 12:05 AM Workstation Name: [id number]
[2021-09-13 00:11] LABS: Bilirubin,Urine Negative (Negative); Color,Urine Straw (Yellow)
[2021-09-13 00:12] LABS: Blood,Urine Large (Negative); Protein,Urine <15 mg/dL mg/dL (Negative); Urobilinogen,Urine < 2.0 mg/dL (<2.0)
[2021-09-13] MEDS ORDERED: cefTRIAXone/NS 1 GM/50 ML 1 GM/50 ML BAG IV STA (00:48)
--- NOTE | 2021-09-13 00:51 | Emergency Department Report ---
ED Abdominal Pain HPI - General Chief Complaint: Abdominal Pain Stated Complaint: RT SIDE FLANK PAIN Time Seen by Provider: 09/12/21 22:59 Source: patient Mode of arrival: Ambulatory Limitations: No Limitations - History of Present Illness MD Complaint: abdominal pain, flank pain (right side) -: Sudden (Started this afternoon around 5 PM just before coming to) Location: RUQ, R flank Migration to: no migration, RUQ Severity: mild Consistency: constant Improves With: nothing Worsens With: nothing Associated Symptoms: nausea, vomiting (To have a vomited 4 times prior to coming to emergency department but none since in the emergency). denies: constipation, dysuria, hematuria, anorexia - Related Data Home Medications Medication Instructions Recorded Confirmed Last Taken Carvedilol [Coreg] 6.25 mg PO BID MDD 6.25 mg 12/30/17 12/30/17 12/28/17 6.25 mg Simvastatin 40 mg PO DAILY MDD 40 mg 12/30/17 12/30/17 12/28/17 40 mg Previous Rx's Medication Instructions Recorded Last Taken Type Insulin NPH/Regular [NovoLIN 70/30] 26 unit SUB-Q BIDDIAB #1 vial 01/01/18 Unkn own Rx Ketorolac [Toradol] 10 mg PO Q6H PRN #15 tablet 09/13/21 Unknown Rx Nitrofurantoin [place]/M-Cryst 100 mg PO Q12HR #20 capsule 09/13/21 Unknown Rx [Macrobid CAP] Phenazopyridine [Pyridium] 200 mg PO TID #9 tab 09/13/21 Unknown Rx Tamsulosin [Flomax] 0.4 mg PO QDAY #10 cap 09/13/21 Unknown Rx Allergies Allergy/AdvReac Type Severity Reaction Status Date / Time No Known Allergies Allergy Verified 12/30/17 12:39 ED Review of Systems ROS: Stated complaint: RT SIDE FLANK PAIN Other details as noted in HPI Comment: All other systems reviewed and negative ED Past Medical Hx - Past Medical History Hx Hypertension: Yes Hx Heart Attack/AMI: No Hx Congestive Heart Failure: No Hx Diabetes: Yes Hx Liver Disease: No Hx Renal Disease: No - Surgical History Additional Surgical History: Thyroidectomy, - Social History Smoking Status: Current Every Day Smoker - Medications Home Medications: Home Medications Medication Instructions Recorded Confirmed Last Taken Type Carvedilol [Coreg] 6.25 mg PO BID MDD 6.25 mg 12/30/17 12/30/17 12/28/17 History 6.25 mg Simvastatin 40 mg PO DAILY MDD 40 mg 12/30/17 12/30/17 12/28/17 History 40 mg Insulin NPH/Regular [NovoLIN 70/30] 26 unit SUB-Q BIDDIAB #1 vial 01/01/18 Unknown Rx Ketorolac [Toradol] 10 mg PO Q6H PRN #15 tablet 09/13/21 Unknown Rx Nitrofurantoin [place]/M-Cryst 100 mg PO Q12HR #20 capsule 09/13/21 Unknown Rx [Macrobid CAP] Phenazopyridine [Pyridium] 200 mg PO TID #9 tab 09/13/21 Unknown Rx Tamsulosin [Flomax] 0.4 mg PO QDAY #10 cap 09/13/21 Unknown Rx ED Physical Exam - General Limitations: No Limitations General appearance: alert, in no apparent distress - Head Head exam: Present: atraumatic, normocephalic - Eye Eye exam: Present: normal appearance, PERRL, EOMI Pupils: Present: normal accommodation - ENT ENT exam: Present: normal exam, normal orophraynx, mucous membranes moist, TM's normal bilaterally - Neck Neck exam: Present: normal inspection, full ROM - Respiratory Respiratory exam: Present: normal lung sounds bilaterally. Absent: respiratory distress - Cardiovascular Cardiovascular Exam: Present: regular rate, normal rhythm. Absent: systolic murmur, diastolic murmur, rubs, gallop - GI/Abdominal GI/Abdominal exam: Present: soft, tenderness (Right upper quadrant with palpation has a questionable Rodriguez sign), normal bowel sounds. Absent: hyperactive bowel sounds, organomegaly, pulsatile mass, hernia - Extremities Exam Extremities exam: Present: normal inspection - Back Exam Back exam: Present: normal inspection, CVA tenderness (R) (Very minimal CVA tenderness). Absent: CVA tenderness (L) - Neurological Exam Neurological exam: Present: alert, oriented X3, CN II-XII intact, normal gait - Psychiatric Psychiatric exam: Present: normal affect, normal mood - Skin Skin exam: Present: warm, dry, intact, normal color. Absent: rash ED Course Vital Signs 09/12/21 20:11 Temperature 98.9 F Pulse Rate 94 H Respiratory 18 Rate Blood Pressure 109/68 O2 Sat by Pulse 100 Oximetry ED Medical Decision Making - Lab Data Result diagrams: 09/12/21 21:20 09/12/21 21:20 - Radiology Data Radiology results: report reviewed [facility] [address] [place] [address] Cat Scan Report Signed Patient: DRE SANTOS MR#: [id number] : 1960 Acct:[id number] Age/Sex: 60 / F ADM Date: 09/12/21 Loc: ED Attending Dr: Ordering Physician: BANDAR PENA Date of Service: 09/13/21 Procedure(s): CT abdomen pelvis wo con Accession Number(s): [id number] cc: BANDAR PENA CT ABDOMEN AND PELVIS WITHOUT CONTRAST INDICATION: flank and right pelvic pain. TECHNIQUE: Axial CT images were obtained through the abdomen and pelvis without IV contrast. All CT scans at this location are performed using CT dose reduction for ALARA by means of automated exposure control. COMPARISON: None FINDINGS: LOWER CHEST: No significant abnormality. LIVER: Diffusely enlarged measuring 21 cm in length. GALLBLADDER: No significant abnormality. BILE DUCTS: No significant abnormality. PANCREAS: No significant abnormality. SPLEEN: No significant abnormality. ADRENALS: No significant abnormality. RIGHT KIDNEY and URETER: 2 tiny punctate 1 to 2 mm right intrarenal stones. Mild dilatation of right ureter without visualized ureteral stone may be secondary to recently passed stone. LEFT KIDNEY and URETER: No significant abnormality. STOMACH and SMALL BOWEL: No significant abnormality. COLON: Moderate constipation APPENDIX: Normal PERITONEUM: No free fluid. No free air. No fluid collection. LYMPH NODES: No significant adenopathy. AORTA and ARTERIES: No significant abnormality. IVC and VEINS: No significant abnormality. URINARY BLADDER: No significant abnormality. REPRODUCTIVE ORGANS: No significant abnormality. ADDITIONAL FINDINGS: Ventral abdominal wall hernia mesh without recurrent/residual hernia SKELETAL SYSTEM: Moderate degenerative change of lower lumbar spine and mild degenerative arthrosis both hips IMPRESSION: 1. Right nephrolithiasis. 2. Mild dilatation of right ureter may be secondary to recently passed ureteral stone. 3. Moderate constipation. Signer Name: Gerard Plunkett MD Signed: 09/13/2021 1:12 AM Workstation Name: [id number] Transcribed By: TL Dictated By: Gerard Plunkett MD Electronically Authenticated By: Gerard Plunkett MD Signed Date/Time: 09/13/21111 DD/ 8 TD/TT: - Medical Decision Making This patient presents with abdominal pain secondary to a kidney stone on the right side and urinary tract infection. Their evaluation has not identified a emergent etiology for the abdominal pain. Specifically, given the right side specific, normal laboratory studies, findings on CT scan and lack of significant risk factors, I have a very low suspicion for appendicitis, ischemic bowel, bowel perforation, or any other life threatening disease. Kidney stone was discovered in conjunction with urinary tract infection vital signs are stable and she was treated accordingly with antibiotics and pain medication as well as IV fluid emergency department and feels significantly improved. I have discussed with the patient the level of uncertainty with undifferentiated abdominal pain and clearly explained the need to follow-up as noted on the discharge instructions, or return to the Emergency Department immediately if the pain worsens, develops fever, persistent and uncontrollable vomiting, or for any new symptoms or concerns. I discussed with the patient that this presentation today for abdominal pain could represent a significant risk for an acute abdominal process. Although the tests in the ED were essentially normal, there is still a possibility of a process such as appendicitis, diverticulitis, cholecystitis, ulcer, early bowel obstruction, mesenteric ischemia, which could subsequently cause disability or . The patient understands that they must return within 24 hours for a recheck or see their physician within 24 hours for re-exam due to the possibility of significant surgical or medical process. Critical care attestation.: If time is entered above; I have spent that time in minutes in the direct care of this critically ill patient, excluding procedure time. ED Disposition Clinical Impression: UTI (urinary tract infection), Kidney stone Disposition: 01 HOME / SELF CARE / HOMELESS Is pt being admited?: No Does the pt Need Aspirin: No Condition: Stable Instructions: Abdominal Pain (ED), Low-Purine Eating Plan, Ureteroscopy, Antibiotic Medicine, Adult, Kidney Stones, Urinary Tract Infection, Adult Referrals: [facility] [Provider Group] - 3-5 Days
--- NOTE | 2021-09-13 01:17 | Cat Scan Report ---
CT ABDOMEN AND PELVIS WITHOUT CONTRAST INDICATION: flank and right pelvic pain. TECHNIQUE: Axial CT images were obtained through the abdomen and pelvis without IV contrast. All CT scans at [facility] location are performed using CT dose reduction for ALARA by means of automated exposure control. COMPARISON: None FINDINGS: LOWER CHEST: No significant abnormality. LIVER: Diffusely enlarged measuring 21 cm in length. GALLBLADDER: No significant abnormality. BILE DUCTS: No significant abnormality. PANCREAS: No significant abnormality. SPLEEN: No significant abnormality. ADRENALS: No significant abnormality. RIGHT KIDNEY and URETER: 2 tiny punctate 1 to 2 mm right intrarenal stones. Mild dilatation of right ureter without visualized ureteral stone may be secondary to recently passed stone. LEFT KIDNEY and URETER: No significant abnormality. STOMACH and SMALL BOWEL: No significant abnormality. COLON: Moderate constipation APPENDIX: Normal PERITONEUM: No free fluid. No free air. No fluid collection. LYMPH NODES: No significant adenopathy. AORTA and ARTERIES: No significant abnormality. IVC and VEINS: No significant abnormality. URINARY BLADDER: No significant abnormality. REPRODUCTIVE ORGANS: No significant abnormality. ADDITIONAL FINDINGS: Ventral abdominal wall hernia mesh without recurrent/residual hernia SKELETAL SYSTEM: Moderate degenerative change of lower lumbar spine and mild degenerative arthrosis b oth hips IMPRESSION: 1. Right nephrolithiasis. 2. Mild dilatation of right ureter may be secondary to recently passed ureteral stone. 3. Moderate constipation. Signer Name: Gerard Plunkett MD Signed: 09/13/2021 1:12 AM Workstation Name: [id number]
== END 2021-09-13 02:10 | disposition home or self-care (01) ==
LOC: ED 19:55
DX: N39.0 Urinary tract infection, site not specified (principal); N20.0 Calculus of kidney; I10 Essential (primary) hypertension; E11.9 Type 2 diabetes mellitus without complications; Z98.890 Other specified postprocedural states; F17.290 Nicotine dependence, other tobacco product, uncomplicated
CPT/HCPCS: 36415; 74176; 76705; 80053; 81001; 83690; 83735; 85025; 87086; 96361; 96365; 96375; 99284; J0696; J2405; J7030

== ENCOUNTER 2021-10-19 15:07 | Emergency (ER) | payer BC ==
[2021-10-19] MEDS ORDERED: diphenhydrAMINE 25 MG CAP PO ONE (16:02)
[2021-10-19] MEDS ORDERED: FAMOTIDINE 20 MG TAB PO ONE (16:02)
[2021-10-19] MEDS ORDERED: ACETAMINOPHEN 325 MG TAB PO ONE (16:02)
[2021-10-19] MEDS ORDERED: IBUPROFEN 600 MG TAB PO ONE (16:02)
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
[2021-10-19] MEDS ORDERED: DEXAMETHASONE 4 MG TAB PO STA (16:09)
[2021-10-19 16:34] VITALS: BP 101/68
== END 2021-10-19 19:19 | disposition home or self-care (01) ==
LOC: ED 15:07
DX: S13.4XXA Sprain of ligaments of cervical spine, initial encounter (principal); T78.40XA Allergy, unspecified, initial encounter; I10 Essential (primary) hypertension; E11.9 Type 2 diabetes mellitus without complications; F17.200 Nicotine dependence, unspecified, uncomplicated; Z79.899 Other long term (current) drug therapy; X58.XXXA Exposure to other specified factors, initial encounter; Y93.89 Activity, other specified; Y92.89 Other specified places as the place of occurrence of the external cause; Y99.8 Other external cause status
CPT/HCPCS: 99282; J8540

== ENCOUNTER 2021-11-21 08:34 | Outpatient (CLI) | payer BC ==
[2021-11-21 09:20] LABS: Hematocrit 39.3 % (30.3-42.9); Hemoglobin 12.9 gm/dl (10.1-14.3); Mean Platelet Volume 7.2 fl (6-12); Red Blood Count 4.31 M/mm3 (3.65-5.03); Red Cell Distribution Width 13.7 % (13.2-15.2)
[2021-11-21 09:54] LABS: BUN/Creatinine Ratio 34; Blood Urea Nitrogen 17 mg/dL (7-17); Calcium 9.1 mg/dL (8.4-10.2)
[2021-11-21 09:55] LABS: Alanine Aminotransferase 17 units/L (7-56); Albumin 3.8 g/dL (3.9-5); HDL Cholesterol 53 mg/dL (40-59); Hemolysis Index 8; LDL Cholesterol,Direct 99 mg/dL (50-130)
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
== END 2021-11-21 08:35 | disposition home or self-care (01) ==
LOC: XRAY 08:34
PROVIDERS: ATTEND Psychiatry & Neurology Neurology
DX: M47.812 Spondylosis without myelopathy or radiculopathy, cervical region (principal); M25.78 Osteophyte, vertebrae; I10 Essential (primary) hypertension; E78.5 Hyperlipidemia, unspecified; E11.65 Type 2 diabetes mellitus with hyperglycemia; D64.9 Anemia, unspecified; R53.83 Other fatigue
CPT/HCPCS: 36415; 72050; 80053; 80061; 83036; 85027